=== PATIENT | female | born 1990 | race Caucasian/White ===

== ENCOUNTER 2024-11-26 09:40 | Outpatient (AMB) | payer OTHER, SELFPAY ==
--- NOTE | 2024-11-26 09:39 | A.OFFPC_ITS ---
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: No Accompanied by: Self / Same As Patient Allergies medical adhesive Allergy (Mild, Uncoded 11/26/24 10:06) Rash Medication List - Last Reconciled 11/26/24 by Stephanie Zavala PA-C levothyroxine (Synthroid) 100 mcg PO DAILY Tobacco use date assessed: 11/26/24 Dental Screening Dental Screen Date: 11/26/24 Did you have a dental visit in the last 12 months?: No Did you have a dental problem in the last 6 months where you did not have access to dental care?: No Was dental information given to patient?: No HPI Establish Care HPI Details The patient is a 34-year-old female presenting for a new patient appointment and management of chronic conditions. The patient has a history of Pollo's thyroiditis, for which she has been prescribed Synthroid by a previous primary care provider in [place]. She has not had a consistent primary care provider for the past year and a half, relying on telehealth appointments for prescription refills. The patient reports a long-standing history of major depressive disorder, having experienced symptoms for more than half her life. She was initially treated with control for mood stabilization, which she discontinued a month ago. She expresses interest in seeing a therapist or psychiatrist and denies any current suicidal ideation or history of hospitalization for depression. The patient has exercise-induced asthma and uses an albuterol inhaler as needed. In 2003, the patient underwent an emergency appendectomy due to a ruptured appendix. The patient has been working with a functional medicine doctor for digestive issues and weight management, recently starting a new diet and supplements. She is currently taking digestive enzymes and probiotics. Family history is significant for uterine cancer in her grandmother, prompting a referral for cervical cancer screening. Social History - Employment: Works at [employer] - Exercise: Reports exercise-induced ast hma, uses albuterol inhaler as needed - Weight management: [facility] and digestive issues [facility] Medical History Cervical cancer screening Depression Exercise-induced asthma Pollo thyroiditis Establishing care with new doctor, encounter for Surgical History History of appendectomy (~2003) Family History Father Gout Mother High cholesterol Depression Anxiety Social History Housing: House Alcohol intake: current Alcohol intake frequency: holidays/special occasions only Patient Tobacco Use Status: Never used Tobacco service: No Current occupational status: employed Cognitive needs: No Hearing needs: No Vision needs: Yes (rx glasses) Questionnaire PHQ-9 Over the last 2 weeks, how often have you been bothered by any of the following problems? 1. Little interest or pleasure in doing things: more than half the days 2. Feeling down, depressed, or hopeless: several days 3. Trouble falling or staying asleep, or sleeping too much: several days 4. Feeling tired or having little energy: not at all 5. Poor appetite or overeating: not at all 6. Feeling bad about yourself - or that you are a failure or have let yourself or your family down: more than half the days 7. Trouble concentrating on things, such as reading the newspaper or watching television: not at all 8. Moving or speaking so slowly that other people could have noticed. Or the opposite - being so fidgety or restless that you have been moving around a lot more than usual: not at all 9. Thoughts that you would be better off or of hurting yourself in some way: several days Total score: 7 Depression Screening Interpretation: Positive Depression Screening Follow-up: Existing condition and Follow-up Visit Requested (Referral to leslie Shankar, psychiatrist and therapist) Depression Screening Done: Yes 23923 - PHQ-9 Billing: Yes Source: Developed by Drs. Cheo Perez, Izabella Chavarria, Chan Peña and colleagues, with an educational priscilla from [employer]. Thrive Questionnaire Date Thrive assessed: 11/26/24 I am a: Patient What is your living situation today?: I have a steady place to live Within the past 12 months, did the food you bought not last and you didn't have the money to get more?: Never true Within the past 12 months, did you worry whether your food would run out before you got money to buy more?: Never true Do you have trouble paying for medicines?: No Do you have trouble getting transportation to medical appointments?: No Do you have trouble paying your heating and electricity bill?: No Do you have trouble taking care of your child, family member or friend?: No Do you have trouble with day-to-day activities such as bathing, preparing meals, shopping, managing finances, etc.?: No Are you currently unemployed and looking for a job?: No Are you interested in more education?: No Please select the resources that you would like help with: None Currently or been in a relationship where the following occur: No concerns reported THRIVE Score: 0 AUDIT C Alcohol Use Questionnaire (AUDIT-C) 1. How often do you have a drink containing alcohol?: Monthly or less 2. How many drinks containing alcohol do you have on a typical day when you are drinking?: 1 or 2 3. How often do you have six or more drinks on one occasion?: Never Total Score: 1 Score Reviewed/Action Taken: No JAVON-7 AMB Questionnaire JAVON-7 Date JAVON - 7 assessed: 11/26/24 Feeling nervous, anxious, or on edge: 1 = Several days Not being able to stop or control worryin = Not at all Worrying too much about different things: 0 = Not at all Trouble relaxin = Several days Being so restless that it is hard to sit still: 0 = Not at all Becoming easily annoyed or irritable: 1 = Several days Feeling afraid as if something awful might happen: 0 = Not at all Total JAVON-7 score (0-4 normal; 5-9 mild; 10-14 moderate; 15-21 severe): 3 Source: Developed by Drs. Cheo Perez, Izabella Chavarria, Chan Peña and colleagues, with an educational priscilla from [employer] JAVON-7 Assessment Billing JAVON-7 Assessment Tool: JVAON-7 Assessment 83731 Review of Systems Const Details: - Endocrine: Reports history of Pollo's thyroiditis - Psychiatric: Reports long-standing depression, denies current suicidal ideation - Respiratory: Reports exercise-induced asthma, uses albuterol inhaler as needed - Gastrointestinal: Reports digestive issues, currently managed with diet and supplements Physical exam (Primary Care) Vital Signs: Last Vital Signs Temp 98.1 F 11/26/24 09:47 Pulse 69 11/26/24 09:47 Resp 16 11/26/24 09:47 BP 120/64 11/26/24 09:47 Pulse Ox 98 11/26/24 09:47 Oxygen Delivery Method Room Air 11/26/24 09:47 Care Plan Goal for BP management: <140/90 at Goal BMI result Body Mass Index 28.7 BMI Assessment/Plan discussion: High BMI High, discussed plan: lifestyle, weight reduction, dietary, physical activity and alcohol moderation Tobacco/Smoking Status: Tobacco use Status Tobacco use date assessed 11/26/24 11/26/24 09:42 Patient Tobacco Use Status Never used Tobacco 11/26/24 10:01 PHQ-9: PHQ-9 Score PHQ-9: Total score 7 11/26/24 10:01 Depression Screening Interpretation: Positive Depression Screening Follow-up: Existing condition and Follow-up Visit Requested (Referral to akbar Cardoso and therapist) Thrive Assessment: Date of Thrive Assessment Date Thrive assessed 11/26/24 11/26/24 09:42 Currently or been in a relationship where the following occur: No concerns reported Const Other: Appearance: Alert. Oriented X3. No acute distress. Head: Normal external exam. Normocephalic. Atraumatic. Eyes: Pupils are equal, round, and reactive to light. Extraocular movements intact. Conjunctiva and sclera normal. Eyelids normal. Throat: Pharynx normal. Uvula midline. Moist mucous membranes. Neck: Normal inspection. Neck supple. Full range of motion. Cardiovascular: Normal heart rate and rhythm. Respiratory: No respiratory distress. Painless inspiration. Back: Full range of motion noted. Skin: Skin warm and dry. Normal skin color. Extremities: Extremities exhibit normal range of motion. Coding Level of Care Code New Pt Level 5 (93870) Complex EM visit Add On G2211 Diagnoses Establishing care with new doctor, encounter for Z76.89 Pollo thyroiditis E06.3 Exercise-induced asthma J45.990 Depression F32.A Cervical cancer screening Z12.4 Additional Codes PHQ-9 - 89508 - PHQ-9 Billing: Yes ([id number]) JAVON-7 Assessment Billing - JAVON-7 Assessment Tool: JAVON-7 Assessment 08416 ([id number]) Assessment & Plan Assessment & Plan (1) Establishing care with new doctor, encounter for: Code(s): Z76.89 - Persons encountering health services in other specified circumstances Category: Medical (2) Pollo thyroiditis: Code(s): E06.3 - Autoimmune thyroiditis Category: Medical Plan: The patient will continue with Synthroid for management of Pollo's thyroiditis. A follow-up on thyroid function tests is recommended to ensure adequate control. Condition is chronic and stable will continue to monitor. (3) Exercise-induced asthma: Code(s): J45.990 - Exercise induced bronchospasm Category: Medical Plan: The patient will continue using an albuterol inhaler as needed for exercise- induced asthma. Condition is chronic and stable continue to monitor. (4) Depression: Code(s): F32.A - Depression, unspecified Category: Medical Plan: The patient is interested in seeing a therapist or psychiatrist for management of depression. A referral to a mental health provider will be made, and interim support through telehealth is available. Patient denies any SI or HI. Condition is chronic and stable continue to monitor. (5) Cervical cancer screening: Code(s): Z12.4 - Encounter for screening for malignant neoplasm of cervix Category: Medical Plan: Due to family history of uterine cancer, a referral for cervical cancer screening is recommended. Plan Plan Patient was informed and verbally consented to the use of an ambient scribe for clinic note documentation during this visit. 1. Pollo's Thyroiditis The patient will continue with Synthroid for management of Pollo's thyroiditis. A follow-up on thyroid function tests is recommended to ensure adequate control. 2. Major Depressive Disorder The patient is interested in seeing a therapist or psychiatrist for management of depression. A referral to a mental health provider will be made, and interim support through telehealth is available. 3. Exercise-Induced Asthma The patient will continue using an albuterol inhaler as needed for exercise- induced asthma. 4. Preventative Care: Cervical Cancer Screening Due to family history of uterine cancer, a referral for cervical cancer screening is recommended. I discussed with the patient the management of her Pollo's thyroiditis, emphasizing the importance of regular thyroid function tests to monitor her condition. We also talked about her long-standing depression and the benefits of seeing a mental health professional, offering a referral to a therapist or psychiatrist. For her exercise-induced asthma, I advised continuing the use of an albuterol inhaler as needed. Given her family history of uterine cancer, I recommended a referral for cervical cancer screening. 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 - Schedule a follow-up for thyroid function tests. - Follow up with the referred mental health provider for depression management. - Use albuterol inhaler as needed for asthma symptoms. - Attend the scheduled cervical cancer screening appointment.
[2024-11-26 09:47] VITALS: BP 120/64; PULSE 69; RESP 16; TEMP 36.7; O2SAT 98; BMI 28.7
--- OUTSIDE RECORDS SUMMARY | 2024-11-26 10:14 | XMS_ITS | Encounter Summary ---
Author Organization [facility] Address [address] [place] [id number] Phone Care Team Providers Care Area Director Name Role Phone Carole Rhoades MD Primary Care Provider [phone] Encounter Details Date Type Department Care Team (Late st Contact Info) Description 12/21/2016 Conversion Encounter [facility] - [address] [address] Social History Tobacco Use Types Packs/Day Years Used Date Smoking Tobacco: Never Assessed Comments Unknown Sex and Gender Information Value Date Recorded Sex Assigned at Not on file Legal Sex Female 4:43 PM EDT Gender Identity Not on file Sexual Orientation Not on file documented as of this encounter Plan of Treatment Not on file documented as of this encounter Visit Diagnoses Not on filedocumented in this encounter Care Teams Area Director Relationship Specialty Start Date End Date Carole Rhoades MD [address] [place] [address] PCP - General 12/15/16 08/17/22 documented as of this encounter
== END 2024-11-26 10:24 | disposition home or self-care (01) ==
PROVIDERS: PCP Physician Assistant Medical; Visit Provider Physician Assistant Medical
DX: E06.3 Autoimmune thyroiditis (principal); Z76.89 Persons encountering health services in other specified circumstances; J45.990 Exercise induced bronchospasm; F32.A Depression, unspecified

== ENCOUNTER → 2024-11-26 09:40 | Outpatient (BNVA) | payer OTHER, SELFPAY | PROVIDERS: PCP Physician Assistant Medical; Visit Provider Physician Assistant Medical | DX: E06.3 Autoimmune thyroiditis (principal); F32.A Depression, unspecified; J45.990 Exercise induced bronchospasm; Z76.89 Persons encountering health services in other specified circumstances | CPT/HCPCS: 96127 ==